=== PATIENT | female | born 1990 | race Caucasian/White ===

== ENCOUNTER 2017-05-27 08:00 | Outpatient (CLI) | payer OTHER ==
[2017-05-27 18:18] LABS: BILIRUBIN,URINE NEGATIVE (NEGATIVE); GLUCOSE, URINE (UA) NEGATIVE (NEGATIVE); KETONES,URINE (UA) NEGATIVE (NEGATIVE); LEUKOCYTE ESTERASE, URINE NEGATIVE (NEGATIVE); NITRITE,URINE NEGATIVE (NEGATIVE); OCCULT BLOOD,URINE NEGATIVE (NEGATIVE); PROTEIN,URINE NEGATIVE (NEGATIVE); UROBILINOGEN,URINE 0.2 (NORMAL) E.U./dL (NORMAL)
[2017-05-27 18:19] LABS: CLARITY,URINE CLEAR (CLEAR)
[2017-05-27 18:42] LABS: BACTERIA,URINE None Seen /HPF (None Seen); RBC,URINE 0-5 /HPF (0-5); SQUAMOUS EPITHELIAL CELL,UR MOD Squamous (<= Few)
== END 2017-05-27 08:01 | disposition home or self-care (01) ==
LOC: LAB.R 08:00
PROVIDERS: ATTEND Nurse Practitioner Family
DX: R39.15 Urgency of urination (principal)
CPT/HCPCS: 81001; 87086

== ENCOUNTER 2017-07-22 09:42 | Outpatient (CLI) | payer OTHER ==
--- NOTE | 2017-07-22 11:33 | Ultrasound Report ---
LEFT BREAST ULTRASOUND: 07/22/2017 CLINICAL INDICATION: Localized left breast pain. TECHNIQUE: Real-time scanning was performed with small business representative static images obtained. FINDINGS: Ultrasound of the region of pain identified by the patient was performed. Unremarkable parenchymal lobules are seen. No discrete solid or cystic lesion is identified. No sonographically suspicious findings are seen. IMPRESSION: NEGATIVE EXAMINATION. RECOMMENDATION: Continued clinical management of breast pain. Routine annual screening to begin at age 40, unless otherwise clinically indicated. BIRADS category 1-negative. TD: 07/22/2017 11:32
== END 2017-07-22 09:43 | disposition home or self-care (01) ==
LOC: DI 09:42
PROVIDERS: ATTEND Nurse Practitioner Family
DX: N64.4 Mastodynia (principal)
CPT/HCPCS: 76642

== ENCOUNTER 2018-04-03 13:30 | Outpatient (CLI) | payer OTHER ==
[2018-04-03 17:32] LABS: BILIRUBIN,URINE NEGATIVE (NEGATIVE); GLUCOSE, URINE (UA) NEGATIVE (NEGATIVE); KETONES,URINE (UA) NEGATIVE (NEGATIVE); NITRITE,URINE POSITIVE (NEGATIVE); OCCULT BLOOD,URINE MODERATE (NEGATIVE); PROTEIN,URINE NEGATIVE (NEGATIVE); UROBILINOGEN,URINE 0.2 (NORMAL) E.U./dL (NORMAL)
[2018-04-03 17:40] LABS: BACTERIA,URINE Many /HPF (None Seen); CLARITY,URINE CLEAR (CLEAR); LEUKOCYTE ESTERASE, URINE H (NEGATIVE); SQUAMOUS EPITHELIAL CELL,UR RARE Squamous (<= Few); WBC CLUMPS,URINE PRESENT
== END 2018-04-03 13:31 | disposition home or self-care (01) ==
LOC: LAB 13:30
PROVIDERS: ATTEND Nurse Practitioner
DX: R39.15 Urgency of urination (principal)
CPT/HCPCS: 81001; 87086

== ENCOUNTER 2019-04-26 14:35 | Outpatient (CLI) | payer MEDICAID, OTHER | END 2019-04-26 23:59 | disposition home or self-care (01) | LOC: LAB.R 14:35 | PROVIDERS: ATTEND Family Medicine | DX: N39.0 Urinary tract infection, site not specified (principal) | CPT/HCPCS: 87086 ==

== ENCOUNTER 2019-10-11 08:00 | Outpatient (CLI) | payer OTHER ==
[2019-10-11 20:56] LABS: TRICHOMONAS VAGINALIS DNA NEGATIVE (NEGATIVE)
== END 2019-10-11 23:59 | disposition home or self-care (01) ==
LOC: LAB.R 08:00
PROVIDERS: ATTEND Obstetrics & Gynecology
DX: Z11.3 Encounter for screening for infections with a predominantly sexual mode of transmission (principal)
CPT/HCPCS: 87491; 87591; 87661

== ENCOUNTER 2021-10-15 17:00 | Outpatient (CLI) | payer OTHER | END 2021-10-15 23:59 | disposition home or self-care (01) | LOC: LAB 17:00 | PROVIDERS: ATTEND Registered Nurse | DX: N30.00 Acute cystitis without hematuria (principal) | CPT/HCPCS: 87086; 87181 ==

== ENCOUNTER 2023-12-21 08:00 | Outpatient (CLI) | payer BC, OTHER | END 2023-12-21 23:59 | disposition home or self-care (01) | LOC: LAB 08:00 | PROVIDERS: ATTEND Registered Nurse | DX: N30.00 Acute cystitis without hematuria (principal) | CPT/HCPCS: 87077; 87086 ==